=== PATIENT | female | born 1950 | race Caucasian/White ===

== ENCOUNTER 2018-08-23 08:21 | Day surgery (SDC) | payer OTHER ==
[~2018-08-23 08:21] MED LIST: ABATINEX680 MG PO; DICY20TA PO; INTESTINEX680 MG PO; LEVAQUIN750 MG PO; LOSARTAN-HCTZ1 EAC2 PO; MEDROLPACK PO; MIRALAX510 GM PO; NABUMETONE500 MG PO; NORVASC2.5 M1 PO; PANTOPRAZOLE SO40 MG PO; PREMARIN0.45 MG PO; PROVENTIL S1 ML/5 MG IH; TRAM1TAB98 PO; ZETIA10 MG PO
== END 2018-08-23 13:55 | disposition home or self-care (01) ==
LOC: AMB-ENDOS 08:21
DX: D12.3 Benign neoplasm of transverse colon (principal); K64.8 Other hemorrhoids

== ENCOUNTER 2020-03-26 08:42 | Day surgery (SDC) | payer OTHER | END 2020-03-26 13:35 | disposition home or self-care (01) | LOC: AMB-ENDOS 08:42 | PROVIDERS: ATTEND Surgery | DX: K62.89 Other specified diseases of anus and rectum (principal); K64.8 Other hemorrhoids; Z20.828 Contact with and (suspected) exposure to other viral communicable diseases ==

== ENCOUNTER → 2024-11-12 | Emergency (ER) | payer OTHER ==
[~2024-11-12] VITALS: Ht 165.1 cm; Wt 83.5 kg
[~2024-11-12] MED LIST changes: +MORPHINE SULFATE 4 MG/ML CARTRIDGE IV ONE; +MORPHINE SULFATE 4 MG/ML VIAL IV ONE
[2024-11-12 18:45] LABS: HEMATOCRIT 37.3 % (36.0-45.00); HEMOGLOBIN 12.7 g/dL (12.0-15.00); MEAN CELL VOLUME 95.8 fL (80.00-100.00); MEAN CORPUSCULAR HEMOGLOBIN 32.7 pg (27.00-32.0); MEAN CORPUSCULAR HGB CONC 34.1 g/dl (32.0-36.0); PLATELET COUNT 227 K/uL (150-450); RED BLOOD COUNT 3.89 M/uL (4.00-6.00); RED CELL DISTRIBUTION WIDTH 13.6 % (11.5-14.5)
[2024-11-12 19:00] LABS: CALCIUM 10.1 mg/dL (8.5-10.1); CREATININE SERUM 1.13 mg/dL (0.55-1.02); GFR 46.81; POTASSIUM 3.24 mEq/L (3.5-5.1)
[2024-11-12 19:30] LABS: PH,URINE 5.5 (5.0-8.0); URINE APPEARANCE Clear; URINE BILIRRUBIN Negative (NEGATIVE); URINE BLOOD Negative; URINE COLOR Yellow; URINE GLUCOSE Negative (NEGATIVE); URINE KETONE Negative (NEGATIVE); URINE LEUKOCYTE Trace; URINE NITRATE Negative; URINE PROTEIN Negative (NEGATIVE); URINE UROBILINOGEN 0.2 E.U./dl
[2024-11-12 19:33] LABS: URINE BACTERIA 1132.1 uL (0.0-1933); URINE EPITHELIAL CELLS 24.9 uL (0.0-38.8); URINE RBC 4.5 uL (0.0-20.8); URINE WBC 29.2 uL (0.0-23.2)
[2024-11-12 19:41] LABS: URINE CAST 0.29 uL (0.0-1.40)
== END | disposition left against medical advice (07) ==
LOC: ER 17:57
PROVIDERS: Emergency Medicine
DX: R10.9 Unspecified abdominal pain (principal); I10 Essential (primary) hypertension; Z88.6 Allergy status to analgesic agent; R19.7 Diarrhea, unspecified
CPT/HCPCS: 36415; 74177; 96365; 99284; J2270 ×3; Q9965

== ENCOUNTER 2024-12-05 18:14 | Emergency (ER) | payer OTHER ==
[~2024-12-05] VITALS: Ht 165.1 cm; Wt 79.8 kg
[~2024-12-05 18:14] MED LIST changes: -MORPHINE SULFATE 4 MG/ML CARTRIDGE IV ONE; -MORPHINE SULFATE 4 MG/ML VIAL IV ONE
[2024-12-05] MEDS ORDERED: SYNTHROID112 MCG PO (19:05)
[2024-12-05] MEDS ORDERED: FAMOTIDINE/PF 20 MG/2 ML VIAL ONE (19:23)
[2024-12-05] MEDS ORDERED: FAMOtidine 10 MG/ML (4ML VIAL) IV ONE (19:30)
[2024-12-05] MEDS ORDERED: 0.9 % SODIUM CHLORIDE 500 ML IV ONE (19:45)
[2024-12-05 19:46] LABS: HEMATOCRIT 38.7 % (36.0-45.00); MEAN CELL VOLUME 95.7 fL (80.00-100.00); MEAN CORPUSCULAR HEMOGLOBIN 32.2 pg (27.00-32.0); MEAN CORPUSCULAR HGB CONC 33.7 g/dl (32.0-36.0); PLATELET COUNT 217 K/uL (150-450); RED BLOOD COUNT 4.04 M/uL (4.00-6.00)
[2024-12-05 20:29] LABS: URINE APPEARANCE Cloudy; URINE BILIRRUBIN Negative (NEGATIVE); URINE BLOOD Negative; URINE COLOR Yellow; URINE GLUCOSE Negative (NEGATIVE); URINE KETONE Negative (NEGATIVE); URINE LEUKOCYTE Small; URINE NITRATE Negative; URINE PROTEIN Negative (NEGATIVE); URINE UROBILINOGEN 0.2 E.U./dl
[2024-12-05 20:32] LABS: URINE EPITHELIAL CELLS 57.4 uL (0.0-38.8); URINE RBC 32.8 uL (0.0-20.8); URINE WBC 60.9 uL (0.0-23.2)
[2024-12-05 20:37] LABS: URINE CAST 1.03 uL (0.0-1.40)
[2024-12-05 20:42] LABS: CALCIUM 9.9 mg/dL (8.5-10.1); CREATININE SERUM 1.03 mg/dL (0.55-1.02); GFR 52.1; POTASSIUM 3.69 mEq/L (3.5-5.1)
[2024-12-05] MEDS ORDERED: CEFTRIAXONE SODIUM 1,000 MG VIAL ONE (21:35)
[2024-12-05] MEDS ORDERED: CEFTRIAXONE SODIUM 1,000 MG VIAL IV ONE (21:45)
== END 2024-12-05 22:05 | disposition home or self-care (01) ==
LOC: ER 18:14
PROVIDERS: General Practice
DX: K29.70 Gastritis, unspecified, without bleeding (principal); Z88.6 Allergy status to analgesic agent; N39.0 Urinary tract infection, site not specified; F43.21 Adjustment disorder with depressed mood; Z63.1 Problems in relationship with in-laws